=== PATIENT | female | born 1980 | race African-American/Black ===

== ENCOUNTER 2017-03-08 08:55 | Emergency (ER) | payer OTHER ==
[~2017-03-08] VITALS: Ht 165.1 cm; Wt 77.1 kg
[2017-03-08 08:58] VITALS: BP 141/90
[2017-03-08] MEDS ORDERED: IBUPROFEN600 MG ORAL (09:23)
[2017-03-08] MEDS ORDERED: CYCLOBENZAPRINE10 MG ORAL (09:23)
[2017-03-08 09:33] VITALS: BP 141/90
--- NOTE | 2017-03-08 10:46 | Emergency Room Report ---
History of Present Illness General Chief Complaint: Pain Source: Patient Present Illness HPI 28-year-old female presents ED for evaluation. States the last 2 months she's been having neck pain. States that last few days she's noticed pain radiating down her neck towards her right hand. During sensation. Sharp. 8/10. Denies photophobia. Denies neck stiffness. Denies any motor weakness in the arms. Denies chest pain or shortness of breath. No other aggravating relieving factors. Denies any other associated symptoms Allergies: Coded Allergies: No Known Allergies (Unverified , 03/08/17) Patient History Past Medical History: none Past Surgical History: none Pertinent Family History: none Social History: Denies: smoking, alcohol use, drug use Last Menstrual Period: 02/13/17 Now: No Immunizations: UTD Reviewed Nursing Documentation: PMH: Agreed, PSxH: Agreed Nursing Documentation-PMH Past Medical History: No Stated History Review of Systems All Other Systems: negative except mentioned in HPI Physical Exam Vital Signs Date Time Temp Pulse Resp B/P (MAP) Pulse Ox O2 Delivery O2 Flow Rate FiO2 03/08/17 08:58 98.1 84 18 141/90 100 Room Air Sp02 EP Interpretation: reviewed, normal General Appearance: no apparent distress, alert, GCS 15, non-toxic Head: normocephalic Eyes: bilateral eye normal inspection, bilateral eye PERRL ENT: normal ENT inspection Neck: full range of motion, no meningismus, no bony tend, supple/symm/no masses , tender lateral Respiratory: chest non-tender, lungs clear, normal breath sounds, speaking full sentences Cardiovascular #1: regular rate, rhythm, no edema Gastrointestinal: normal inspection Rectal: deferred Genitourinary: no CVA tenderness Musculoskeletal: back normal, gait/station normal, normal range of motion, tender - TTP R SCM Neurologic: alert, oriented x3, responsive, motor strength/tone normal, sensory intact, speech normal Psychiatric: normal inspection Skin: normal inspection Lymphatic: normal inspection Medical Decision Making Diagnostic Impression: Primary Impression: Cervical strain Qualified Codes: S16.1XXA - Strain of muscle, fascia and tendon at neck level , initial encounter ER Course Hospital Course 36-year-old female presents ED complaining of neck pain radiating down the right arm Differential diagnoses include: neck strain, shoulder strain, dislocation/ fracture Clinical course Patient placed on stretcher. After initial history and physical exam reveals female in no acute distress. On exam there is no midline neck tenderness or shoulder tenderness. Full range of motion to the shoulder. Tender to palpation over the sternocleidomastoid No focal neurological deficits. 5 out of 5 motor strength in the right arm. Consistent with a cervical strain versus radiculopathy. Offered option for imaging at this time including CT. Patient declined. States she'll followup with her PMD Diagnosis - Cervical strain Stable and discharged to home with prescription for treatment motrin, Flexeril. heating pads. Followup with PMD. Return to ED if symptoms recur or worsen Last Vital Signs Date Time Temp Pulse Resp B/P (MAP) Pulse Ox O2 Delivery O2 Flow Rate FiO2 03/08/17 09:33 98.1 84 18 141/90 100 Room Air Status: improved Disposition: HOME, SELF-CARE Condition: Stable Scripts Cyclobenzaprine Hcl* (FLEXERIL*) 10 Mg Tablet 10 MG ORAL THREE TIMES A DAY, #20 TAB Prov: JONATAN MITTAL M.D. 03/08/17 Ibuprofen* (MOTRIN*) 600 Mg Tablet 600 MG ORAL Q8H Y for For Pain, #30 TAB 0 Refills Prov: JONATAN MITTAL M.D. 03/08/17 Referrals: NOT CHOSEN IPA/,REFERRING (PCP) Departure Forms: Return to Work Return to Work Date: Mar 10, 2017 Work Restrictions: No Heavy Lifting Patient Instructions: Cervical Radiculopathy, [id number] JONATAN MITTAL M.D. Mar 08, 2017 10:46
== END 2017-03-08 09:33 | disposition home or self-care (01) ==
LOC: EMR 09:16
DX: S16.1XXA Strain of muscle, fascia and tendon at neck level, initial encounter (principal); X58.XXXA Exposure to other specified factors, initial encounter; Y92.9 Unspecified place or not applicable
CPT/HCPCS: 99283